=== PATIENT | female | born 1985 ===

== ENCOUNTER 2018-06-13 09:08 | Emergency (ER) | payer OTHER ==
[2018-06-13 09:20] VITALS: BP 118/66; PULSE 76; RESP 16; TEMP 98; O2SAT 98
--- NOTE | 2018-06-13 09:42 | C.PDOC ---
History Of Present Illness <Kwasi Isaacs - Last Filed: 06/13/18 09:39> <Dougie Meyer DO - Last Filed: 06/13/18 17:59> CC: Left tooth pain Patient is a 33 year old female with no known past medical history, who presents to the ED with complaint of left tooth pain that started 4 days ago. Patient reports that she had similar presentation approximately a year ago and it was resolved with NSAIDs use. With this current episode, patient states that ibuprofen provides minimal relief. Patient does not have a Dentist and denies any prior or current dental work. Patient denies fever, chills, trauma but admits to headache and left ear pain. (Kwasi Isaacs) History Per: Patient History/Exam Limitations: no limitations Onset/Duration Of Symptoms: Days Current Symptoms Are (Timing): Still Present Severity: Moderate Pain Scale Rating Of: 7 Location: Tooth 17 Recent travel outside of the [place]: No <Kwasi Isaacs - Last Filed: 06/13/18 09:39> <Dougie Meyer DO - Last Filed: 06/13/18 17:59> Time Seen by Provider: 06/13/18 09:14 Chief Complaint (Nursing): Dental Pain Past Medical History Surgical History: No Surg Hx Family History: States: Unknown Family Hx - Social History Hx Tobacco Use: No Hx Alcohol Use: No Hx Substance Use: No - Immunization History Hx Tetanus Toxoid Vaccination: No Hx Influenza Vaccination: No Hx Pneumococcal Vaccination: No <wKasi Isaacs - Last Filed: 06/13/18 09:39> Vital Signs: Last Vital Signs Temp 98 F 06/13/18 09:13 Pulse 76 06/13/18 09:13 Resp 16 06/13/18 09:13 BP 118/66 06/13/18 09:13 Pulse Ox 98 06/13/18 09:46 Review Of Systems Constitutional: Negative for: Fever, Chills Eyes: Negative for: Pain, Vision Change ENT: Positive for: Ear Pain, Mouth Pain, Other (Tooth pain ( Number 17)). Negative for: Nose Pain, Nose Discharge, Mouth Swelling Cardiovascular: Negative for: Chest Pain, Palpitations, Orthopnea Respiratory: Negative for: Cough, Shortness of Breath, Hemoptysis, SOB with Excertion, Pleuritic Pain Gastrointestinal: Negative for: Nausea, Vomiting Neurological: Positive for: Headache <[place],Kwasi Stacy - Last Filed: 06/13/18 09:39> Physical Exam - Physical Exam Appears: Well Skin: Normal Color Head: Atraumatic, Normacephalic Eye(s): bilateral: Normal Inspection, PERRL, EOMI Ear(s): Bilateral: Normal Nose: Normal Oral Mucosa: Moist, Other (Tenderness to left buccal with palpation ) Tongue: Normal Appearing Teeth: Normal Dentition, Tender To Palpation Gingiva: Tender Throat: Normal Cardiovascular: Rhythm Regular Respiratory: Normal Breath Sounds Gastrointestinal/Abdominal: Normal Exam, Bowel Sounds, Soft Extremity: Normal ROM, No Tenderness, No Pedal Edema Neurological/Psych: Oriented x3, Normal Speech <Lacy Isaacsreta Stacy - Last Filed: 06/13/18 09:39> ED Course And Treatment O2 Sat by Pulse Oximetry: 98 <Kwasi Isaacs - Last Filed: 06/13/18 09:39> Disposition - Disposition Disposition Time: 09:30 <Kwasi Isaacs - Last Filed: 06/13/18 09:39> - Disposition Disposition Time: 09:20 <Dougie Meyer DO - Last Filed: 06/13/18 17:59> - Disposition Referrals: [facility] [Outside] [facility] [Outside] Disposition: HOME/ ROUTINE Condition: GOOD Additional Instructions: HITESH PARIS, thank you for letting us take care of you today. Your provider was Dougie Meyer DO and you were treated for TOOTH PAIN. The emergency medical care you received today was directed at your acute symptoms. If you were prescribed any medication, please fill it and take as directed. It may take several days for your symptoms to resolve. Return to the Emergency Department if your symptoms worsen, do not improve, or if you have any other problems. Please contact your doctor or call one of the physicians/clinics you have been referred to that are listed on the Patient Visit Information form that is included in your discharge packet. Bring any paperwork you were given at discharge with you along with any medications you are taking to your follow up visit. Our treatment cannot replace ongoing medical care by a primary care provider outside of the emergency department. Thank you for allowing the [facility] team to be part of your care today. Follow up with a dentist this week. You may use one that is on the list we gave you. HITESH RAINA, hilaria por dejarnos atenderlo hoy. Flores proveedor fue Dougie Meyer DO y usted fue tratado por DOLOR DE DIENTE. La atencin mdica de emergencia que recibi hoy estaba dirigida a marina sntomas agudos. Si le prescribieron algn medicamento, llnelo y tome segn las indicaciones. Marina s ntomas pueden tardar varios velásquez en resolverse. Regrese al Departamento de Emergencia si marina sntomas empeoran, no mejoran o si tiene algn otro problema. Comunquese con flores mdico o llame a ramiro de los mdicos / clnicas a los que ramos sido referido que figura en el formulario de Informacin de visita del paciente que se incluye en flores paquete de dianna. Traiga todos los documentos que recibi al momento del dianna junto con los medicamentos que est tomando en flores visita de seguimiento. Nuestro tratamiento no puede reemplazar la atencin mdica en curso por un proveedor de atencin primaria fuera del departamento de emergencia. Hilaria por permitir que el equipo de [facility] sea parte de flores cuidado hoy. Will un seguimiento con un dentista esta semana. Puede usar ramiro que est en la lista que le dimos. 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 ESTRELLITA has examined the patient and agrees with the treatment plan. <Dougie Meyer DO - Last Filed: 06/13/18 17:59>
== END 2018-06-13 09:36 | disposition home or self-care (01) ==
LOC: C.ER 09:08
DX: K08.89 Other specified disorders of teeth and supporting structures (principal)